=== PATIENT | male | born 1960 | race Caucasian/White ===

== ENCOUNTER → 2018-05-18 | Outpatient (CLI) | payer SELFPAY ==
[~2018-05-18] MED LIST: LOPRESSOR25 MG PO; PAXIL20 MG PO; ZOCOR40 MG PO
== END | disposition home or self-care (01) ==
LOC: RAD 10:28 → EDSTATUS 11:00
PROC: 07B63ZX Excision of Left Axillary Lymphatic, Percutaneous Approach, Diagnostic (ICD-10-PCS; principal; 2018-05-18)
DX: C78.00 Secondary malignant neoplasm of unspecified lung (principal)
CPT/HCPCS: 76942; 88305; 88341 TC; 88342 TC

== ENCOUNTER → 2018-05-21 | Outpatient (CLI) | payer OTHER | END | disposition home or self-care (01) | LOC: RAD 13:38 | DX: R91.8 Other nonspecific abnormal finding of lung field (principal); R59.0 Localized enlarged lymph nodes; R22.9 Localized swelling, mass and lump, unspecified | CPT/HCPCS: 70553 ==